=== PATIENT | female | born 1970 | race Caucasian/White ===

== ENCOUNTER → 2019-01-18 17:48 | Outpatient (CLI) | payer BC, SELFPAY ==
--- NOTE | 2019-01-18 17:57 | CT_ITS ---
STUDY: LOW DOSE CT LUNG CANCER SCREENING REASON FOR EXAM: Female, 48 years old. 30 pack-year smoking history, quit 3-4 years ago. RADIATION DOSAGE (If Supplied By Facility): CTDIvol = ( 3.02 ) mGy, DLP = ( 101.18 ) mGycm TECHNIQUE: No contrast was administered. Low dose technique was utilized (average mAS-38 and kVp 120). 1.25 mm axial source images with a slice interval of 1.25-mm were reconstructed in lung windows. Coronal and sagittal 2-D MPR Nodule measured using lung windows on PACS and/or independent workstation with automated measurement of minimum and maximum diameter. Nodule measurement reported as average diameter rounded to the nearest whole number. Growth is defined as an increase ins size of greater than 1.5 mm. COMPARISON: None. FINDINGS: Total lung nodules (excluding granulomas): Right lower lobe lateral basilar segment 3 mm noncalcified solid appearing pulmonary nodule. A few additional very tiny scattered nodules are present. Emphysema: Centrilobular emphysema predominating at the apices. Endobronchial lesion: None. Aorta: Nondilated. Coronary arteries: Coronary cusp secretions are present in the proximal LAD, proximal circumflex, mid and distal RCA. Heart: No cardiomegaly or pericardial effusion. Pulmonary artery: Nondilated. Mediastinal nodes: Normal esophagus. No mass or lymphadenopathy. Other chest and abdominal findings: Cholecystectomy. No acute upper abdominal process. Body wall soft tissues, supraclavicular soft tissues, osseous structures exhibit No acute abnormality's. CT/Low Dose CT Lung Screening IMPRESSION: ACR lung RADS category 2, benign appearance, less than 1% chance of malignancy. A few small pulmonary nodules, less than 3 mm. Centrilobular emphysema. Coronary atherosclerosis. No other significant thoracic abnormality is evident. Recommendation, follow-up low dose chest CT screening. IMPORTANT NOTES FOR USE: ACR Lung-RADS Version 1.0 Assessment Categories Release Date: March 07, 2014 Category: Coded 0-4 bases on nodule(s) with highest degree of suspicion. Negative screen is defined as categories 1 and 2; a positive screen is defined as categories 3 and 4. Category 3 and 4A nodules that are unchanged on interval CT should be coded as category 2, and individuals returned to screening in 12 months. Category 4X: Category 3 or 4 nodules with additional imaging findings that increase the suspicion of lung cancer, such as spiculation, GGN that doubles in size in 1 year, enlarged lymph notes, etc. Category Modifiers: S (significant finding unrelated to lung cancer) and C (prior history of treated lung cancer) may be added to the 0-4 Lung-RADS Electronically Signed: Luis M Rosario MD at 12:47 EDT Tel , Service support ,
== END ==
DX: Z12.2 Encounter for screening for malignant neoplasm of respiratory organs (principal); F17.210 Nicotine dependence, cigarettes, uncomplicated
CPT/HCPCS: G0297

== ENCOUNTER → 2022-09-06 | Outpatient (CLI) | payer BC, SELFPAY ==
--- NOTE | 2022-09-06 09:26 | EKG12_ITS ---
Test Reason : PRE OP Blood Pressure : / mmHG Vent. Rate : 092 BPM Atrial Rate : 092 BPM P-R Int : 168 ms QRS Dur : 072 ms QT Int : 380 ms P-R-T Axes : 082 088 068 degrees QTc Int : 469 ms Normal sinus rhythm Possible Right atrial enlargement Borderline ECG Confirmed by BERNA JAY, BRYAN ([id number]), editor dictionary DERECK ALFONSO ([id number]) on 09/06/2022 10:19:40 AM Referred By: Jeremiah Chowdhury Confirmed By:BRYAN CORONEL MD
== END | disposition home or self-care (01) ==
LOC: PSN 09:23
PROVIDERS: PCP Nurse Practitioner Family; Referring Provider Otolaryngology; Visit Provider Otolaryngology
DX: Z01.810 Encounter for preprocedural cardiovascular examination (principal)
CPT/HCPCS: 93005